=== PATIENT | male | born 1965 | race Caucasian/White ===

== ENCOUNTER 2017-06-23 20:24 | Emergency (ER) | payer SELFPAY ==
[2017-06-23 20:50] VITALS: BP 144/91; PULSE 62; TEMP 98.6; BMI 27.4
[2017-06-23] MEDS ORDERED: SODIUM CHLORIDE 0.9% 1000 ML INFUS.BAG IV ONE (21:57)
[2017-06-23] MEDS ORDERED: METOCLOPRAMIDE HCL INJECTION 10 MG/2 ML VIAL IVPB ONE (22:00)
[2017-06-23] MEDS ORDERED: MECLIZINE HCL 25 MG TABLET (FP) PO ONE (22:00)
--- NOTE | 2017-06-23 22:22 | PDOC ---
History of Present Illness - General History Source: Patient Exam Limitations: No Limitations - History of Present Illness Initial Comments: 06/23/17 22:28 The patient is a 51-year-old male, with a significant past medical history of hyperlipidemia (not on any medications), who presents to the ED with 1 week of occipital headache and vertigo. The patient took tylenol earlier today with mild relief of his symptoms. He reports that he does have vertigo like sense of motion, worse when turning his head. He reports nausea but no vomiting. He has no prior hx of vertigo. He denies any fever, chills, or trauma. He does report having blurry vision. <Marisabel Shook - Last Filed: 06/23/17 22:28> - General History Source: Patient Exam Limitations: No Limitations <Vidhi Plascencia - Last Filed: 06/24/17 01:27> - General Chief Complaint: Headache Stated Complaint: HEADACHE Past History <Marisabel Shook - Last Filed: 06/23/17 22:28> - Suicide/Smoking/Psychosocial Hx Smoking History: Never smoked Have you smoked in the past 12 months: No Information on smoking cessation initiated: No Hx Alcohol Use: No Drug/Substance Use Hx: No <Vidhi Plascencia - Last Filed: 06/24/17 01:27> - Past Medical History Allergies/Adverse Reactions: Allergies Allergy/AdvReac Type Severity Reaction Status Date / Time No Known Allergies Allergy Verified 06/23/17 20:50 Home Medications: Ambulatory Orders Acetaminophen [Tylenol] 650 mg PO Q6H PRN 06/23/17 Meclizine HCl 25 mg PO QID #20 tablet MDD 4 06/24/17 Review of Systems - Review of Systems Able to Perform ROS?: Yes Comments:: 06/23/17 22:28 GENERAL/CONSTITUTIONAL: No fever or chills. No weakness. HEAD, EYES, EARS, NOSE AND THROAT: (+)blurred vision. No ear pain or discharge. No sore throat. CARDIOVASCULAR: No chest pain or shortness of breath. RESPIRATORY: No cough, wheezing, or hemoptysis. GASTROINTESTINAL: No nausea, vomiting, diarrhea or constipation. GENITOURINARY: No dysuria, frequency, or change in urination. MUSCULOSKELETAL: No joint or muscle swelling or pain. No neck or back pain. SKIN: No rash NEUROLOGIC: (+)vertigo, headache. No loss of consciousness, or change in strength/sensation. ENDOCRINE: No increased thirst. No abnormal weight change. HEMATOLOGIC/LYMPHATIC: No anemia, easy bleeding, or history of blood clots. ALLERGIC/IMMUNOLOGIC: No hives or skin allergy. <Marisabel Shook - Last Filed: 06/23/17 22:28> *Physical Exam - Vital Signs Last Vital Signs Temp Pulse Resp BP Pulse Ox 98.6 F 62 18 144/91 97 06/23/17 20:47 06/23/17 20:47 06/23/17 20:47 06/23/17 20:47 06/23/17 20:47 - Physical Exam Comments: 06/23/17 22:30 GENERAL: Awake, alert, and fully oriented, in no acute distress HEAD: No signs of trauma EYES: PERRLA, EOMI, sclera anicteric, conjunctiva clear ENT: Auricles normal inspection, hearing grossly normal, nares patent, oropharynx clear without exudates. Moist mucosa NECK: Normal ROM, supple, no lymphadenopathy, JVD, or masses LUNGS: Breath sounds equal, clear to auscultation bilaterally. No wheezes, and no crackles HEART: Regular rate and rhythm, normal S1 and S2, no murmurs, rubs or gallops ABDOMEN: Soft, nontender, normoactive bowel sounds. No guarding, no rebound. No masses EXTREMITIES: Normal range of motion, no edema. No clubbing or cyanosis. No cords, erythema, or tenderness NEUROLOGICAL:(+)Positive [place]-Hallpike. 5/5 strength. [id number], heel to mason, and alternating hand movements are normal. Negative Romberg. Normal speech , normal gait SKIN: Warm, Dry, normal turgor, no rashes or lesions noted <Marisabel Shook - Last Filed: 06/23/17 22:28> - Vital Signs Last Vital Signs Temp Pulse Resp BP Pulse Ox 98.6 F 62 18 144/91 97 06/23/17 20:47 06/23/17 20:47 06/23/17 20:47 06/23/17 20:47 06/23/17 20:47 <Vidhi Plascencia - Last Filed: 06/24/17 01:27> ED Treatment Course - LABORATORY CBC & Chemistry Diagram: 06/23/17 22:50 06/23/17 22:50 - RADIOLOGY Radiology Studies Ordered: Category Date Time Status HEAD CT WITHOUT CONTRAST [CT] Stat CT Scan 06/23/17 22:14 Ordered <Vidhi Plascencia - Last Filed: 06/24/17 01:27> Medical Decision Making - Medical Decision Making 06/23/17 22:18 51 yo male with h/o HLD, here for headache for one week occipital, constant slow progressive x one week. nauseau, no vomiting. no trauma. no mod factors. does have vertigo like sxs, worse with head turning and movement. on exam awake alert head atraumatic. EOMI, PERRL. lungs clear heart rrr. abd soft nt nd. nuero 5/5. CN intact. finger to nose, heel to mason and alt hand movement normal. neg romberg. gait normal. positive [place] hallpike to right differential: likely peripheral vertigo, irene ivf, labs r/o electrolyte abnormality or anemia. ct head. iv fluids, meclizine reglan reassess. <Vidhi Plascencia - Last Filed: 06/24/17 01:27> *DC/Admit/Observation/Transfer - Attestations Scribe Attestion: 06/23/17 22:32 Documentation prepared by Marisabel Shook, acting as clinical medical transcriptionist for Vidhi Plascencia MD. <Marisabel Shook - Last Filed: 06/23/17 22:28> - Discharge Dispostion Admit: No <Vidhi Plascencia - Last Filed: 06/24/17 01:27> Diagnosis at time of Disposition: Positional vertigo of right ear, Headache - Discharge Dispostion Disposition: HOME Condition at time of disposition: Improved - Prescriptions Prescriptions: Meclizine HCl 25 mg PO QID #20 tablet MDD 4 - Referrals Referrals: Mayco Hickman MD [Staff Physician] - - Patient Instructions Printed Discharge Instructions: Benign Paroxysmal Positional Vertigo Additional Instructions: you can take meclizine 25 mg every 6 hours as needed for vertigo, return for any problems or concerns. follow up with nuerology dr hickman see referral information for phone number. you can take ibuprofen 400 mg every 8 hours as needed for headache or pain. also you should take allergy medication such as claritin or zyrtec as directed ( over the counter ) to help with sinusitis which can contribute to headache and vertigo.
[2017-06-23 22:57] LABS: BASOPHIL 0.7 % (0-2.0); EOSINOPHIL 0.5 % (0-4.5); MCH 32.4 pg (25.7-33.7); MEAN CELL VOLUME 92.5 fl (80-96); MEAN PLT VOLUME 8.2 fl (7.5-11.1); NEUTROPHILS 77.2 % (42.8-82.8); PLATELET COUNT 255 K/MM3 (134-434); RDW 13.3 % (11.9-15.9); WHITE BLOOD COUNT 10.7 K/mm3 (4.0-10.0)
[2017-06-23] MEDS ORDERED: MECLIZINE HCL 25 MG TABLET (FP) ONE (23:02)
[2017-06-23] MEDS ORDERED: METOCLOPRAMIDE HCL INJECTION 10 MG/2 ML VIAL ONE (23:02)
[2017-06-23 23:27] LABS: ALBUMIN 3.9 g/dl (3.4-5.0); ALK PHOS 127 U/L (45-117); ANION GAP 7 (8-16); BILIRUBIN,TOTAL 0.4 mg/dL (0.2-1.0); CO2 29 mmol/L (21-32); CREATININE 0.7 mg/dL (0.7-1.3); GLUCOSE,RANDOM 106 mg/dL (74-106); SGOT/AST 19 U/L (15-37); SGPT/ALT 45 U/L (12-78); TOT PROT 7.7 g/dl (6.4-8.2)
[2017-06-24] MEDS ORDERED: KETOROLAC TROMETHAMINE 30 MG/1 ML VIAL IVPUSH ONE (00:13)
[2017-06-24] MEDS ORDERED: KETOROLAC TROMETHAMINE 30 MG/1 ML VIAL ONE (00:48)
== END 2017-06-24 01:31 | disposition home or self-care (01) ==
LOC: JER 20:24
PROC: 3E0333Z Introduction of Anti-inflammatory into Peripheral Vein, Percutaneous Approach (ICD-10-PCS; principal; 2017-06-23)
PROC: 3E033GC Introduction of Other Therapeutic Substance into Peripheral Vein, Percutaneous Approach (ICD-10-PCS; 2017-06-23)
PROC: 3E0337Z Introduction of Electrolytic and Water Balance Substance into Peripheral Vein, Percutaneous Approach (ICD-10-PCS; 2017-06-23)
DX: H81.11 Benign paroxysmal vertigo, right ear (principal); R51 Headache; E78.5 Hyperlipidemia, unspecified
CPT/HCPCS: 36415; 70450-TC; 80053; 85025; 99281-25